=== PATIENT | male | born 1935 | race Caucasian/White ===

== ENCOUNTER 2023-07-15 14:30 | Emergency (ER) | payer OTHER, MEDICARE ==
[~2023-07-15] VITALS: Ht 180.3 cm; Wt 77.3 kg
[2023-07-15 15:28] VITALS: BP 162/79; PULSE 60; RESP 16; O2SAT 98
[2023-07-15] MEDS ORDERED: LidoCAINE 2% Topical Jelly 11mL syringe TOP ONE (16:10)
[2023-07-15 17:33] LABS: BILIRUBIN,URINE NEGATIVE (Neg); CLARITY,URINE CLOUDY (Clear); COLOR,URINE YELLOW (Yellow); GLUCOSE, URINE NEGATIVE (Neg); KETONES,URINE NEGATIVE (Neg); LEUKOCYTE ESTERASE ,URINE NEGATIVE (Neg); NITRITES, URINE POSITIVE (Neg); OCCULT BLOOD,URINE MODERATE (Neg); PROTEIN,URINE 100 mg/dl (Neg); UROBILINOGEN,URINE 0.2 E.U/dL (0.2-1.0)
[2023-07-15 17:42] VITALS: TEMP 97.5
[2023-07-15 17:48] LABS: SQUAMOUS EPITHELIAL CELL,UR FEW /LPF (FEW); UA COLLECTION TYPE FOLEY CATH
[2023-07-15 17:52] LABS: BACTERIA,URINE 2+ /HPF (Neg); RBC,URINE TNTC /HPF (0-2)
[2023-07-15] MEDS ORDERED: SULF1TAB49 PO (17:59)
[2023-07-15] MEDS ORDERED: sulfamethoxazole/trimethoprim SS (400mg/80mg) tab (single-strength) PO ONE (18:00)
[2023-07-15] MEDS ORDERED: sulfamethoxazole/trimethoprim DS (800/160mg) tablet PO ONE (18:00)
[2023-07-15] MEDS ORDERED: sulfamethoxazole/trimethoprim SS (400mg/80mg) tab (single-strength) PO SCH (18:00)
== END 2023-07-15 18:13 | disposition home or self-care (01) ==
LOC: ER 14:30
DX: R33.9 Retention of urine, unspecified (principal); N39.0 Urinary tract infection, site not specified
CPT/HCPCS: 51702; 81001; 87077; 87088; 87186; 99284; A4314; A4340; A4355; A4358; C1758